=== PATIENT | male | born 1990 | race African-American/Black ===

== ENCOUNTER 2023-05-21 23:38 | Inpatient (IN) | payer SELFPAY ==
[2023-05-22 00:22] LABS: Hematocrit 18.8 % (38.8-50.0); Hemoglobin 5.8 g/dL (13.5-17.5); Mean Corpuscular HGB CONC 30.9 g/dL (32.0-36.0); Mean Corpuscular Hemoglobin 26.4 pg (27.0-33.0); Mean Corpuscular Volume 85.5 fl (81.2-95.1); Mean Platelet Volume 8.3 fl (7.4-10.4); Platelet Count 366 10x3/uL (150-450); RBC Distribution Width 16.8 % (11.5-14.5); White Blood Cell (WBC) Count 5.9 10x3/uL (3.5-10.5)
[2023-05-22 00:23] LABS: #Monocytes 0.4 10x3/uL (0.0-1.1); #Neutrophils 3.2 10x3/uL (1.5-8.4); %Basophils 0.2 % (0.0-2.0); %Eosinophils 0.7 % (0.0-6.0); %Lymphocytes 37.4 % (18.0-47.0); %Monocytes 7.4 % (0.0-10.0); %Neutrophils 53.8 % (40.0-75.0)
[2023-05-22 00:39] LABS: ALT (SGPT) 17 U/L (8-55); AST (SGOT) 27 U/L (5-34); Acetaminophen Less than 10 mcg/mL (10.0-30.0); Albumin 4.3 g/dL (3.5-5.0); Alcohol 68.7 mg/dL (Less than 10); Alkaline Phosphatase 38 U/L (40-110); Anion Gap 15 mmol/L (10-20); BUN (Urea Nitrogen) 8 mg/dL (8.9-20.6); Bilirubin, Total Less than 0.2 mg/dL (0.2-1.2); Calc. Creatinine Clearance 0 mL/min (70-130); Carbon Dioxide 21 mmol/L (22-29); Chloride 108 mmol/L (98-107); Estimated GFR 110; Globulin 2.4 g/dL (2.4-3.5); Glucose 111 mg/dL (70-105); Lipase 19 U/L (8-78); Potassium 3.4 mmol/L (3.5-5.1); Protein, Total 6.7 g/dL (6.0-8.3); Salicylate Less than 8.0 mg/dL (15.0-30.0); Sodium 141 mmol/L (136-145)
[2023-05-22 02:10] LABS: Bilirubin Neg (Negative); Blood, Urine Negative (Negative); Clarity Slightly Cloudy (Clear); Glucose, Urine (Dipstick) Normal (Negative); Ketone, Urine Negative (Negative); Leukocyte Negative (Negative); Nitrite Negative (Negative); Protein, Urine (Dipstick) 30 mg/dl (Neg-Trace); Specific Gravity, Urine 1.015 (1.005-1.030); Urobilinogen Normal mg/dL (Less than 2)
[2023-05-22 02:20] LABS: Amphetamine Not Detected (NotDetected); Barbiturates Screen Not Detected (NotDetected); Benzodiazepine Screen Not Detected (NotDetected); Cocaine Metabolite Screen Not Detected (NotDetected); Methadone Not Detected (NotDetected); Methamphetamine Not Detected (NotDetected); Opiate Screen Not Detected (NotDetected); Oxycodone Screen Not Detected (NotDetected); Phencyclidine (PCP) Not Detected (NotDetected); THC/Cannabinoid Screen Detected (NotDetected); Tricyclic Screen Not Detected (NotDetected)
[2023-05-22 02:23] LABS: Bacteria/HPF None Seen HPF (None Seen); CAUTI Indications for Culture Alt mental st,lethar; RBC/HPF None Seen HPF (0-3); Squamous Epithelial 0-3 HPF (0-3); WBC/HPF None Seen HPF (0-3)
[2023-05-22 02:24] LABS: Urine Culture Reflex No No
[2023-05-22] MEDS ORDERED: Ondansetron PF 4 MG/2 ML Vial IVP PRN (02:51)
[2023-05-22] MEDS ORDERED: Calcium Carbonate 500 MG ChewTAB PO PRN (02:51)
[2023-05-22] MEDS ORDERED: Bisacodyl 5 MG TAB PO PRN (02:51)
[2023-05-22] MEDS ORDERED: Senokot S 8.6-50 MG TAB PO PRN (02:51)
[2023-05-22] MEDS ORDERED: Lactated Ringer's 500 ML IV SCH (03:00)
[2023-05-22] MEDS ORDERED: Potassium Chloride 20 MEQ TAB PO SCH (03:00)
[2023-05-22] MEDS ORDERED: Lactated Ringer's 1,000 ML IV SCH (03:00)
[2023-05-22] MEDS ORDERED: Potassium Chloride 20 MEQ TAB ONE (08:28)
[2023-05-22] MEDS: Multivitamin W/ Minerals 1 TAB PO SCH (08:33)
[2023-05-22 08:34] LABS: #Monocytes 0.5 10x3/uL (0.0-1.1); #Neutrophils 6.6 10x3/uL (1.5-8.4); %Basophils 0.2 % (0.0-2.0); %Eosinophils 0.1 % (0.0-6.0); %Lymphocytes 16.1 % (18.0-47.0); %Monocytes 5.6 % (0.0-10.0); %Neutrophils 77.8 % (40.0-75.0); Hematocrit 24.7 % (38.8-50.0); Hemoglobin 8.1 g/dL (13.5-17.5); Mean Corpuscular HGB CONC 32.8 g/dL (32.0-36.0); Mean Corpuscular Hemoglobin 27.9 pg (27.0-33.0); Mean Corpuscular Volume 85.2 fl (81.2-95.1); Mean Platelet Volume 8.3 fl (7.4-10.4); Platelet Count 333 10x3/uL (150-450); RBC Distribution Width 16.3 % (11.5-14.5); White Blood Cell (WBC) Count 8.4 10x3/uL (3.5-10.5)
[2023-05-22 08:47] LABS: PTT 23.3 sec (22.0-33.0); Prothrombin Time 10.9 sec (9.5-12.1)
[2023-05-22 08:57] LABS: Anion Gap 14 mmol/L (10-20); BUN (Urea Nitrogen) 7 mg/dL (8.9-20.6); Calc. Creatinine Clearance 0 mL/min (70-130); Calcium 8.9 mg/dL (7.8-10.44); Carbon Dioxide 23 mmol/L (22-29); Chloride 107 mmol/L (98-107); Estimated GFR 120; Glucose 130 mg/dL (70-105); Iron 36 ug/dL (65-175); Iron Binding Capacity, Total 436 mcg/dL (261-462); Magnesium 1.5 mg/dL (1.6-2.6); Potassium 3.9 mmol/L (3.5-5.1); Sodium 140 mmol/L (136-145)
[2023-05-22] MEDS ORDERED: Metamucil PACK PO SCH (09:00)
[2023-05-22 09:19] LABS: Ferritin 8.12 ng/mL (22-322); Free T4 (Free Thyroxine) 1.3 ng/dL (0.70-1.48); Thyroid Stimulating Hormone 0.3649 uIU/mL (0.35-4.94)
[2023-05-22] MEDS ORDERED: Iopamidol 300 61% 100 ML VIAL FS ONE (12:35)
[2023-05-22] MEDS ORDERED: Iron, Sodium Ferric Gluconate 250 MG in Sodium Chloride 0.9% 250 ML 250 ML IVPB SCH (14:00)
[2023-05-22] MEDS ORDERED: GoLYTELY 4,000 ml Bottle PO SCH (19:00)
[2023-05-22 21:30] VITALS: BMI 21.9
[2023-05-22] MEDS: Pantoprazole 40 MG VIAL IVP SCH (22:38)
[2023-05-22] MEDS ORDERED: D5 0.9% NS w/ 20 mEq KCl 1,000 ML IV SCH (22:45)
[2023-05-22 23:41] LABS: #Eosinphils 0.1 10x3/uL (0.0-0.5); #Neutrophils 4.7 10x3/uL (1.5-8.4); %Basophils 0.2 % (0.0-2.0); %Eosinophils 0.7 % (0.0-6.0); %Lymphocytes 30.3 % (18.0-47.0); %Monocytes 11.7 % (0.0-10.0); %Neutrophils 56.6 % (40.0-75.0); Hemoglobin 8.6 g/dL (13.5-17.5); Mean Corpuscular HGB CONC 31.9 g/dL (32.0-36.0); Mean Corpuscular Volume 84.6 fl (81.2-95.1); Mean Platelet Volume 8.6 fl (7.4-10.4); Platelet Count 387 10x3/uL (150-450); RBC Distribution Width 16.5 % (11.5-14.5); Red Blood Cell (RBC) Count 3.19 10x6/uL (4.32-5.72); White Blood Cell (WBC) Count 8.3 10x3/uL (3.5-10.5)
[2023-05-23] MEDS: Acetaminophen 325 MG TAB PO PRN ×2 (00:13→20:56)
[2023-05-23] MEDS ORDERED: Preparation H Ointment 57 gram tube RC SCH (00:30)
[2023-05-23] MEDS: Hydrocortisone 2.5%/Pramoxine 1% CRM 30 GM TUBE TOP SCH (00:53)
[2023-05-23] MEDS ORDERED: FLU VACC QS2023-24(6MOS UP)/PF 60 MCG/0.5 ML SYRINGE IM ONE (01:00)
[2023-05-23 04:26] LABS: #Monocytes 0.8 10x3/uL (0.0-1.1); #Neutrophils 4.2 10x3/uL (1.5-8.4); %Basophils 0.3 % (0.0-2.0); %Eosinophils 0.5 % (0.0-6.0); %Lymphocytes 33.1 % (18.0-47.0); %Monocytes 10.5 % (0.0-10.0); %Neutrophils 55.3 % (40.0-75.0); Hematocrit 27.7 % (38.8-50.0); Hemoglobin 8.8 g/dL (13.5-17.5); Mean Corpuscular HGB CONC 31.8 g/dL (32.0-36.0); Mean Corpuscular Hemoglobin 27.2 pg (27.0-33.0); Mean Corpuscular Volume 85.5 fl (81.2-95.1); Mean Platelet Volume 8.5 fl (7.4-10.4); Platelet Count 381 10x3/uL (150-450); RBC Distribution Width 16.6 % (11.5-14.5); Red Blood Cell (RBC) Count 3.24 10x6/uL (4.32-5.72); White Blood Cell (WBC) Count 7.6 10x3/uL (3.5-10.5)
[2023-05-23 04:35] LABS: Anion Gap 12 mmol/L (10-20); BUN (Urea Nitrogen) 6 mg/dL (8.9-20.6); Calc. Creatinine Clearance 140 mL/min (70-130); Carbon Dioxide 24 mmol/L (22-29); Chloride 108 mmol/L (98-107); Estimated GFR 119; Glucose 94 mg/dL (70-105); Potassium 3.7 mmol/L (3.5-5.1); Sodium 140 mmol/L (136-145)
[2023-05-23] MEDS ORDERED: PROPOFOL 40 ML ONE (09:32)
[2023-05-23] MEDS ORDERED: Midazolam HCl 2 mg/2 ml Vial ONE (09:32)
[2023-05-23] MEDS ORDERED: Lidocaine 1% PF 5 ML VIAL ONE (09:32)
[2023-05-23] MEDS: Multivitamin W/ Minerals 1 TAB PO SCH (10:18)
[2023-05-23] MEDS: Pantoprazole 40 MG VIAL IVP SCH ×2 (10:18→20:57)
[2023-05-23] MEDS: Preparation H Ointment 57 gram tube RC SCH ×4 (10:18→20:57)
[2023-05-23] MEDS ORDERED: Iron, Sodium Ferric Gluconate 250 MG in Sodium Chloride 0.9% 250 ML 250 ML IVPB SCH (14:00)
[2023-05-23 20:04] LABS: HIV (1/2) Antibody/Antigen Non-Reactive (NonReactive); HIV 1/2 INDEX 0.11 S/CO (<1.00)
[2023-05-23] MEDS: methylPREDNISolone Sod Succ 40 MG VIAL IVP SCH (20:57)
[2023-05-23 23:29] LABS: HBCM Index 0.11 S/CO (0-0.79); Hep A IgM AB Non-Reactive S/CO (NonReactive); Hep A IgM S/CO 0.17 S/CO (0-0.79); Hep C IgG Ab Non-Reactive S/CO (NonReactive); Hep C Index 0.05 S/CO (0-0.79); Hepatitis B Core IgM Abs Non-Reactive S/CO (NonReactive)
[2023-05-24 00:25] LABS: HBSAg Index 0.22 S/CO (0-0.99); Hep B Surf Ag Non-Reactive S/CO (NonReactive)
[2023-05-24 04:21] LABS: Anion Gap 12 mmol/L (10-20); BUN (Urea Nitrogen) 5 mg/dL (8.9-20.6); Calc. Creatinine Clearance 147 mL/min (70-130); Calcium 9.1 mg/dL (7.8-10.44); Carbon Dioxide 23 mmol/L (22-29); Chloride 106 mmol/L (98-107); Estimated GFR 120; Glucose 123 mg/dL (70-105); Potassium 4.1 mmol/L (3.5-5.1); Sodium 137 mmol/L (136-145)
[2023-05-24 04:22] LABS: Hematocrit 26.4 % (38.8-50.0); Hemoglobin 8.6 g/dL (13.5-17.5); Mean Corpuscular HGB CONC 32.6 g/dL (32.0-36.0); Mean Corpuscular Hemoglobin 27.9 pg (27.0-33.0); Mean Corpuscular Volume 85.7 fl (81.2-95.1); Mean Platelet Volume 9.1 fl (7.4-10.4); Platelet Count 372 10x3/uL (150-450); Red Blood Cell (RBC) Count 3.08 10x6/uL (4.32-5.72); White Blood Cell (WBC) Count 6.8 10x3/uL (3.5-10.5)
[2023-05-24 04:58] VITALS: TEMP 97.6
[2023-05-24 05:04] LABS: Lymphocytes 6 % (21-51); Neutrophil 94 % (42-75)
[2023-05-24 05:05] LABS: Platelet Adequacy Comment Appears Adequate; Schistocytes SLIGHT = 2-5 cells (100X) (0-1/hpf)
[2023-05-24 05:15] LABS: MDiff Complete? YES
[2023-05-24] MEDS ORDERED: Ferrous Sulfate 325 MG TAB PO SCH (08:00)
[2023-05-24] MEDS: Multivitamin W/ Minerals 1 TAB PO SCH (08:55)
[2023-05-24] MEDS: Pantoprazole 40 MG VIAL IVP SCH (08:55)
[2023-05-24] MEDS: methylPREDNISolone Sod Succ 40 MG VIAL IVP SCH (08:55)
[2023-05-24] MEDS: Preparation H Ointment 57 gram tube RC SCH (08:56)
[2023-05-24 08:57] VITALS: BP 139/82
[2023-05-27 14:13] LABS: QuantiFERON-TB Gold Plus Negative (Negative)
== END 2023-05-24 09:57 | disposition home or self-care (01) | DRG 348 ==
LOC: CSHERS 23:38 → CSHERHOLD 05-22 02:38 → OBSVTOIN 05-22 13:31 → CSHTELE 05-22 21:16
PROVIDERS: ADMIT Student in an Organized Health Care Education/Training Program; ATTEND Internal Medicine
PROC: 30233N1 Transfusion of Nonautologous Red Blood Cells into Peripheral Vein, Percutaneous Approach (ICD-10-PCS; 2023-05-22)
PROC: 06LY8CC Occlusion of Hemorrhoidal Plexus with Extraluminal Device, Via Natural or Artificial Opening Endoscopic (ICD-10-PCS; principal; 2023-05-23)
PROC: 0DB98ZX Excision of Duodenum, Via Natural or Artificial Opening Endoscopic, Diagnostic (ICD-10-PCS; 2023-05-23)
PROC: 0DBC8ZX Excision of Ileocecal Valve, Via Natural or Artificial Opening Endoscopic, Diagnostic (ICD-10-PCS; 2023-05-23)
DX: K64.8 Other hemorrhoids (principal); D62 Acute posthemorrhagic anemia; K63.3 Ulcer of intestine; K50.90 Crohn's disease, unspecified, without complications; E87.6 Hypokalemia; F12.929 Cannabis use, unspecified with intoxication, unspecified; F10.10 Alcohol abuse, uncomplicated; D50.9 Iron deficiency anemia, unspecified; K64.4 Residual hemorrhoidal skin tags; K44.9 Diaphragmatic hernia without obstruction or gangrene
CPT/HCPCS: 36415; 36430; 70450; 71045; 72125; 74177; 80048; 80053; 80074; 80306; 80307; 81001; 82607; 82728; 83540; 83550; 83690; 83735; 84439; 84443; 85025; 85610; 85730; 86480; 86850; 86900; 86901; 87389; 88305; 93005; C9113; J2250; J2704; J2916; J2920; J3480; J7050; J7120; P9016; Q9967